=== PATIENT | female | born 1975 | race Two or more races ===

== ENCOUNTER 2016-08-09 19:52 | Emergency (ER) | payer MEDICAID ==
[~2016-08-09] VITALS: Ht 170.2 cm; Wt 97.5 kg
[2016-08-09 19:56] VITALS: BP 121/81
[2016-08-09 21:09] LABS: Basophils # (auto) 0 uL; Basophils % (auto) 0.4 % (0.0-2.0); Eosinophils # (auto) 0 uL; Eosinophils % (auto) 0.1 % (0.0-7.0); Hematocrit 48.9 % (36.0-46.0); Lymphocytes % (auto) 16.4 % (10.0-50.0); Mean Corpuscular Hemoglobin 29.5 pg (28.0-32.0); Mean Corpuscular Hgb Conc. 32.8 g/dL (32.0-36.0); Mean Corpuscular Volume 89.8 fL (80.0-100.0); Mean Platelet Volume 7.7 fL (7.4-10.4); Monocytes # (auto) 0.1 uL; Monocytes % (auto) 1.1 % (0.0-12.0); Platelet Count (auto) 333 10^3/uL (140-450); Red Cell Distribution Width 13.1 % (11.6-16.0); White Blood Cell 6.1 10^3/uL (4.4-10.8)
[2016-08-09 21:22] LABS: Albumin 4.3 g/dL (3.4-5.0); Anion Gap 11 (5-15); Aspartate Aminotransferase 21 U/L (15-37); Blood Urea Nitrogen 12 mg/dL (7-18); Calcium 9.3 mg/dL (8.5-10.1); Carbon Dioxide 25 mmol/L (21-32); Chloride 105 mmol/L (98-107); GFR African American 102 mL/min; GFR Non-African American 84 mL/min; Glucose 132 mg/dL (74-106); Potassium 3.5 mmol/L (3.5-5.1); Sodium 141 mmol/L (136-145)
[2016-08-09 21:27] LABS: Alkaline Phosphatase 100 U/L (45-117); Bilirubin, Total 0.4 mg/dL (0.2-1.0); Total Protein 8.4 g/dL (6.4-8.2)
== END 2016-08-09 21:20 | disposition left against medical advice (07) ==
LOC: ER 19:58
DX: F10.239 Alcohol dependence with withdrawal, unspecified (principal); Z53.21 Procedure and treatment not carried out due to patient leaving prior to being seen by health care provider
CPT/HCPCS: 36415; 80053; 80320; 85025

== ENCOUNTER 2017-10-28 18:43 | Emergency (ER) | payer MEDICAID ==
[~2017-10-28] VITALS: Ht 167.6 cm; Wt 90.7 kg
[2017-10-28] MEDS ORDERED: LORazepam 2MG/ML-1ML VIAL IV ONE ×2 (19:00→20:00)
[2017-10-28 19:05] VITALS: BP 176/94
[2017-10-28 19:33] LABS: Basophils # (auto) 0.1 uL; Basophils % (auto) 0.8 % (0.0-2.0); Eosinophils # (auto) 0 uL; Eosinophils % (auto) 0.1 % (0.0-7.0); Hematocrit 44.3 % (36.0-46.0); Hemoglobin 15.6 g/dL (12.2-16.2); Lymphocytes # (auto) 2.1 uL; Lymphocytes % (auto) 20.7 % (10.0-50.0); Mean Corpuscular Hemoglobin 31.7 pg (28.0-32.0); Mean Corpuscular Hgb Conc. 35.2 g/dL (32.0-36.0); Mean Corpuscular Volume 90.2 fL (80.0-100.0); Monocytes # (auto) 0.7 uL; Monocytes % (auto) 6.7 % (0.0-12.0); Neutrophils # (auto) 7.3 uL; Neutrophils % (auto) 71.7 % (37.0-80.0); Platelet Count (auto) 327 10^3/uL (140-450); Red Blood Cells 4.91 10^6/uL (4.0-5.20); White Blood Cell 10.2 10^3/uL (4.4-10.8)
[2017-10-28 19:54] LABS: Alanine Aminotransferase 27 U/L (13-56); Albumin 4.2 g/dL (3.4-5.0); Alkaline Phosphatase 56 U/L (45-117); Anion Gap 9 (5-15); Aspartate Aminotransferase 21 U/L (15-37); Bilirubin, Total 0.6 mg/dL (0.2-1.0); Blood Urea Nitrogen 19 mg/dL (7-18); Calcium 9.5 mg/dL (8.5-10.1); Carbon Dioxide 29 mmol/L (21-32); Chloride 102 mmol/L (98-107); GFR African American 83 mL/min; GFR Non-African American 69 mL/min; Glucose 113 mg/dL (74-106); Magnesium 2.2 mg/dL (1.6-2.6); Sodium 140 mmol/L (136-145); Total Protein 7.9 g/dL (6.4-8.2)
[2017-10-28 20:07] LABS: Potassium 2.9 mmol/L (3.5-5.1)
[2017-10-28] MEDS ORDERED: POTASSIUM CHL 10% (20 MEQ/15ML) 15ml ORAL SOLN PO ONE (20:30)
== END 2017-10-28 21:14 | disposition home or self-care (01) ==
LOC: EDBD 18:43 → ER 18:47
DX: F41.9 Anxiety disorder, unspecified (principal); E87.6 Hypokalemia; J44.9 Chronic obstructive pulmonary disease, unspecified; E78.5 Hyperlipidemia, unspecified; I10 Essential (primary) hypertension; F17.210 Nicotine dependence, cigarettes, uncomplicated; F12.10 Cannabis abuse, uncomplicated; Z90.49 Acquired absence of other specified parts of digestive tract; Z88.8 Allergy status to other drugs, medicaments and biological substances
CPT/HCPCS: 36415; 80053; 83735; 84484; 85025; 93005; 94761; 96374; 96375; 99285; J2060; J7030

== ENCOUNTER 2018-01-27 18:10 | Emergency (ER) | payer MEDICAID ==
[~2018-01-27] VITALS: Ht 167.6 cm; Wt 81.6 kg
[2018-01-27 18:19] VITALS: BP 135/96
[2018-01-27 18:51] LABS: Basophils # (auto) 0 uL; Eosinophils # (auto) 0 uL; Hemoglobin 15.7 g/dL (12.2-16.2); Lymphocytes # (auto) 0.6 uL; Monocytes # (auto) 0.2 uL; Neutrophils # (auto) 6.9 uL; Nucleated Red Blood Cells % 0.1 %
[2018-01-27 18:53] LABS: Basophils % (auto) 0.4 % (0.0-2.0); Hematocrit 45.2 % (36.0-46.0); Lymphocytes % (auto) 7.7 % (10.0-50.0); Mean Corpuscular Hgb Conc. 34.7 g/dL (32.0-36.0); Mean Corpuscular Volume 89.3 fL (80.0-100.0); Monocytes % (auto) 2.5 % (0.0-12.0); Neutrophils % (auto) 89.4 % (37.0-80.0); Platelet Count (auto) 476 10^3/uL (140-450); Red Blood Cells 5.06 10^6/uL (4.0-5.20); Red Cell Distribution Width 12.6 % (11.8-14.3); White Blood Cell 7.7 10^3/uL (4.4-10.8)
[2018-01-27 19:07] LABS: Albumin 4.4 g/dL (3.4-5.0); BUN/Creatinine Ratio 20.2; Calcium 9.8 mg/dL (8.5-10.1); Magnesium 1.8 mg/dL (1.6-2.6); Potassium 3.4 mmol/L (3.5-5.1)
[2018-01-27 19:09] LABS: Bilirubin, Total 0.4 mg/dL (0.2-1.0); Total Protein 8.9 g/dL (6.4-8.2)
[2018-01-28] MEDS ORDERED: METH10T PO (07:58)
== END 2018-01-27 20:30 | disposition left against medical advice (07) ==
LOC: EDBD 18:10 → ER 18:16
DX: R10.9 Unspecified abdominal pain (principal); R11.2 Nausea with vomiting, unspecified; Z53.21 Procedure and treatment not carried out due to patient leaving prior to being seen by health care provider
CPT/HCPCS: 36415; 80053; 82150; 83690; 83735; 85025

== ENCOUNTER 2018-01-28 02:33 | Emergency (ER) | payer MEDICAID ==
[~2018-01-28] VITALS: Ht 170.2 cm; Wt 81.6 kg
[2018-01-28 04:03] LABS: Basophils # (auto) 0 uL; Eosinophils # (auto) 0 uL; Neutrophils # (auto) 6.4 uL; Red Blood Cells 5.22 10^6/uL (4.0-5.20); White Blood Cell 7.9 10^3/uL (4.4-10.8)
[2018-01-28 04:04] LABS: Basophils % (auto) 0.5 % (0.0-2.0); Hematocrit 46.9 % (36.0-46.0); Hemoglobin 16.2 g/dL (12.2-16.2); Lymphocytes % (auto) 12.7 % (10.0-50.0); Mean Corpuscular Hgb Conc. 34.5 g/dL (32.0-36.0); Mean Corpuscular Volume 89.8 fL (80.0-100.0); Monocytes # (auto) 0.5 uL; Monocytes % (auto) 5.8 % (0.0-12.0); Platelet Count (auto) 454 10^3/uL (140-450); Red Cell Distribution Width 12.7 % (11.8-14.3)
[2018-01-28 04:15] LABS: INR 1.03 (0.9-1.15); Partial Thromboplastin Time 27.9 sec (23.78-33.04)
[2018-01-28 04:21] LABS: Albumin 4.5 g/dL (3.4-5.0); BUN/Creatinine Ratio 19.4; Calcium 9.8 mg/dL (8.5-10.1); Potassium 3.4 mmol/L (3.5-5.1)
[2018-01-28 04:24] LABS: Bilirubin, Total 0.4 mg/dL (0.2-1.0); Total Protein 8.8 g/dL (6.4-8.2)
[2018-01-28] MEDS ORDERED: LORazepam 2MG/ML-1ML VIAL ONE (06:13)
[2018-01-28] MEDS ORDERED: ONDANSETRON HCL 4 MG/2 ML VIAL ONE (06:13)
[2018-01-28] MEDS ORDERED: LORazepam 2MG/ML-1ML VIAL IV ONE (06:15)
[2018-01-28] MEDS ORDERED: ONDANSETRON HCL 4 MG/2 ML VIAL IV ONE (06:15)
[2018-01-28] MEDS ORDERED: SODIUM CHLORIDE 0.9% 1,000 ML IV ONE ×2 (06:59→07:00)
[2018-01-28] MEDS ORDERED: LABETALOL HCL 5 MG/ML ML 20ML VIAL IV ONE (07:00)
[2018-01-28] MEDS ORDERED: METHADONE HCL 10 MG TAB PO ONE (07:45)
[2018-01-28 07:55] VITALS: BP 159/105
[2018-01-28] MEDS ORDERED: METH10T PO (07:58)
[2018-01-28 07:59] LABS: Urine Bacteria NONE SEEN /hpf (None Seen); Urine Blood TRACE /uL (Negative); Urine Mucus FEW (None Seen); Urine Specific Gravity 1.019 (1.001-1.035); Urine WBC 2 /hpf (0 - 5)
[2018-01-28 08:09] LABS: Alcohol, Urine < 3.0 mg/dL (0-5); Amphetamine Screen, Urine NEGATIVE (NEGATIVE); Barbiturate Scree,Urine NEGATIVE (NEGATIVE); Benzodiazephine Screen, Urine POSITIVE (NEGATIVE); Cannabinoid Screen, Urine POSITIVE (NEGATIVE); Cocaine Screen, Urine NEGATIVE (NEGATIVE); Opiate Scree,Urine NEGATIVE (NEGATIVE); Phencyclidine Screen, Urine NEGATIVE (NEGATIVE)
== END 2018-01-28 09:35 | disposition home or self-care (01) ==
LOC: EDBD 02:33 → ER 02:40
DX: R10.9 Unspecified abdominal pain (principal); R11.2 Nausea with vomiting, unspecified; J44.9 Chronic obstructive pulmonary disease, unspecified; E78.5 Hyperlipidemia, unspecified; I10 Essential (primary) hypertension; F17.210 Nicotine dependence, cigarettes, uncomplicated; Z88.8 Allergy status to other drugs, medicaments and biological substances
CPT/HCPCS: 36415; 74176; 80053; 80307; 81001; 82150; 83690; 85025; 85610; 85730; 93005; 96361; 96374; 96375; 99285; J2060; J2405; J7030

== ENCOUNTER 2018-10-19 23:54 | Emergency (ER) | payer MEDICAID ==
[~2018-10-19] VITALS: Ht 177.8 cm; Wt 99.8 kg
[~2018-10-19 23:54] MED LIST: METH10T PO
[2018-10-20 01:12] LABS: Potassium 3.6 mmol/L (3.5-5.1)
[2018-10-20 01:15] LABS: Albumin 3.8 g/dL (3.4-5.0)
[2018-10-20] MEDS ORDERED: LORazepam 2MG/ML-1ML VIAL IV ONE (01:15)
[2018-10-20 01:17] LABS: Urine Bacteria FEW /hpf (None Seen); Urine Blood TRACE /uL (Negative); Urine Hyaline Cast FEW /lpf (0 - 2); Urine Mucus FEW (None Seen); Urine Specific Gravity 1.033 (1.001-1.035); Urine WBC 1 /hpf (0 - 5)
[2018-10-20 01:18] LABS: BUN/Creatinine Ratio 16.3
[2018-10-20 01:21] LABS: Bilirubin, Total 0.7 mg/dL (0.2-1.0)
[2018-10-20 04:15] VITALS: BP 148/81
== END 2018-10-20 04:35 | disposition left against medical advice (07) ==
LOC: EDUNIT# 23:54 → EDBD 23:54 → ER 10-20
DX: R10.84 Generalized abdominal pain (principal); R11.2 Nausea with vomiting, unspecified; F41.9 Anxiety disorder, unspecified; J44.9 Chronic obstructive pulmonary disease, unspecified; F32.9 Major depressive disorder, single episode, unspecified; E78.5 Hyperlipidemia, unspecified; I10 Essential (primary) hypertension; Z88.8 Allergy status to other drugs, medicaments and biological substances; Z90.49 Acquired absence of other specified parts of digestive tract
CPT/HCPCS: 36415; 74176; 80053; 81001; 83690; 96374; 99284; J2060

== ENCOUNTER 2019-05-10 10:55 | Inpatient (IN) | payer MEDICAID ==
[~2019-05-10] VITALS: Ht 170.2 cm; Wt 144.0 kg
[2019-05-10] MEDS ORDERED: SODIUM CHLORIDE 0.9% 1,000 ML IVB ONE (11:25)
[2019-05-10 12:12] LABS: Basophils # (auto) 0.1 uL; Eosinophils # (auto) 0 uL; Lymphocytes # (auto) 1.4 uL; Monocytes # (auto) 0.5 uL; Neutrophils # (auto) 6.1 uL; Nucleated Red Blood Cells % 0.4 %; White Blood Cell 8.1 10^3/uL (4.4-10.8)
[2019-05-10 12:13] LABS: Basophils % (auto) 0.8 % (0.0-2.0); Eosinophils % (auto) 0.5 % (0.0-7.0); Hematocrit 54.8 % (36.0-46.0); Hemoglobin 17.3 g/dL (12.2-16.2); Lymphocytes % (auto) 17.2 % (10.0-50.0); Mean Corpuscular Hemoglobin 25.3 pg (28.0-32.0); Mean Corpuscular Hgb Conc. 31.5 g/dL (32.0-36.0); Mean Corpuscular Volume 80.2 fL (80.0-100.0); Monocytes % (auto) 6.4 % (0.0-12.0); Neutrophils % (auto) 75.1 % (37.0-80.0); Platelet Count (auto) 266 10^3/uL (140-450); Red Blood Cells 6.83 10^6/uL (4.0-5.20); Red Cell Distribution Width 19.8 % (11.8-14.3)
[2019-05-10 12:31] LABS: Urine Bacteria NONE SEEN /hpf (None Seen); Urine Blood Negative /uL (Negative); Urine Mucus FEW (None Seen); Urine WBC 1 /hpf (0 - 5)
[2019-05-10 12:36] LABS: Albumin 2.9 g/dL (3.4-5.0); Calcium 8.3 mg/dL (8.5-10.1); Magnesium 1.6 mg/dL (1.6-2.6); Potassium 4.6 mmol/L (3.5-5.1)
[2019-05-10 12:42] LABS: BUN/Creatinine Ratio 24.7; Bilirubin, Total 0.7 mg/dL (0.2-1.0); Total Protein 6.7 g/dL (6.4-8.2)
[2019-05-10] MEDS ORDERED: LORazepam 2MG/ML-1ML VIAL IV ONE (12:45)
[2019-05-10 13:13] LABS: Alcohol, Urine < 3.0 mg/dL (0-5); Amphetamine Screen, Urine NEGATIVE (NEGATIVE); Barbiturate Scree,Urine NEGATIVE (NEGATIVE); Benzodiazephine Screen, Urine POSITIVE (NEGATIVE); Cannabinoid Screen, Urine NEGATIVE (NEGATIVE); Cocaine Screen, Urine NEGATIVE (NEGATIVE); Opiate Scree,Urine NEGATIVE (NEGATIVE); Phencyclidine Screen, Urine NEGATIVE (NEGATIVE)
[2019-05-10] MEDS ORDERED: FUROSEMIDE 40 MG/4 ML VIAL IV ONE (15:00)
[2019-05-10] MEDS ORDERED: ALPRAZolam 0.5 MG TAB PO ONE (16:15)
[2019-05-10] MEDS ORDERED: NITROGLYCERIN 0.4 MG SL TAB SL PRN (16:30)
[2019-05-10] MEDS ORDERED: MORPHINE SULF INJ 2 MG/ML SYRINGE 1ML IV PRN (16:30)
[2019-05-10] MEDS ORDERED: ONDANSETRON HCL 4 MG/2 ML VIAL IV PRN (16:30)
[2019-05-10] MEDS ORDERED: ALPRAZolam 0.5 MG TAB PO PRN (16:30)
--- NOTE | 2019-05-10 17:30 | NUR ---
PATIENT ADMITTED FROM ER: PATIENT ORIENTED TO TELE UNIT, ROOM 272 BED A, AND TO THIS RN. PATIENT A/OX 4 ON 10L OXYMIZER EVEN AND UNLABORED RESPIRATIONS NOTED. OBSERVED PATIENT AMBULATE TO TOILET WITH STEADY GAIT. BED IN LOWEST LOCKED POSITION, CALL LIGHT WITHIN REACH. WILL CONTINUE TO MONITOR.
[2019-05-10 17:37] VITALS: BP 109/73
[2019-05-10 18:14] VITALS: BP 141/76
[2019-05-10] MEDS: IPRATROPIUM BROM 0.5 MG/2.5ML INH SOL NEB SCH (18:17)
[2019-05-10] MEDS: ALBUTEROL SULF 2.5 MG/0.5ML(0.5%) NEB SOLN NEB SCH (18:17)
--- NOTE | 2019-05-10 18:40 | NUR ---
SPOKE WITH VLADIMIR BANEGAS REGARDING PATIENT REQUEST FOR SLEEP AID. NO NEW ORDERS, PLAN TO KEEP CURRENT MED'S AND RE-START LATUDA.
[2019-05-10 19:06] VITALS: BP 141/76
--- NOTE | 2019-05-10 19:19 | NUR ---
CARE ENDORSED TO CORINNE ANDERSEN.
--- NOTE | 2019-05-10 19:40 | NUR ---
Opening Shift Note Assumed care of patient, awake and alert. No S/S of distress. Instructed on POC and to call for assist PRN. Bed in lowest locked position, call light within reach, side rails x2. Will continue to monitor for changes Q1hr and PRN. Signed: 05/11/19 at 0030 by MARINA GARCIA SN <Co-Signature Required> Co-Signed: 05/11/19 at 0030 by CORINNE CASTILLO OCA, RN
[2019-05-10] MEDS ORDERED: IOHEXOL 350 MG/ML 100ML IJ ONE (20:49)
[2019-05-10] MEDS: NICOTINE 21MG/24 HR TOPICAL PATCH TD SCH (21:16)
[2019-05-10] MEDS: predniSONE 20 MG TAB PO SCH (21:17)
[2019-05-10 22:00] VITALS: BP 103/53
--- NOTE | 2019-05-10 22:50 | NUR ---
RT NOTE PT WAS SEEN BY RT FOR HHN TX. PT TOLERATES WELL VIA MASK. NO ADVERSE REACTION NOTED. PT LEFT ON 10L OXYMIZER POST TX. CONT ORDERED Addendum: 05/10/19 at 2316 by Velma Marshall RT Amended: Links added.
[2019-05-10] MEDS: BUDESONIDE (INHALATION) 0.5 MG/2 ML NEB NEB SCH (23:19)
--- NOTE | 2019-05-11 03:40 | NUR ---
Rounds Patient requesting methadone medication and states "will I be able to get my medication at 5 am? Because I go to the clinic at 5am everyday and that's when I get my medicine." Instructed patient that she has medication scheduled at 10 am, but I would ask hospitalist if it will be okay to give medicine early. Assessed patient's O2 saturation per MD Rice order to document any hypoxia throughout the night, patient satting at 86-87% on 10L. No SOB noted, but patient reports to be anxious. Instructed patient that it would be recommended to put on face mask for flow rate of 10L. Per patient she refuses to keep mask on as it "makes me feel claustrophobic", educated patient on the benefit of mask, but patient continues to refuse. Instructed patient that we would speak with RT.
--- NOTE | 2019-05-11 03:55 | NUR ---
Spoke with RT Spoke with RT about patient's current flow rate and O2 saturation at 86-87%. Informed RT of MD Rice progress note to keep O2 above 90%. Informed RT patient is refusing mask administration to help with oxygenation. Per RT, he would recommend patient to be on a high flow rate, but would have to be ALBARO status in order to be on high flow rate. Informed RT that I would speak with hospitalist and inform them of patient's status.
--- NOTE | 2019-05-11 04:00 | NUR ---
Hospitalist paged call circuit worker hospitalist called regarding patient status. Waiting for call back. Continue care.
--- NOTE | 2019-05-11 04:04 | NUR ---
Hospitalist returned call MD Grace returned call, updated MD of reason for call and updated on patient status. Informed MD of patient's O2 saturations and flow rate and not complaining of SOB. Informed MD of RT's recommendation to upgrade patient to ALBARO status in order to place patient on high flow rate. Per MD, okay to upgrade patient to ALBARO status if bed is available and to place on a high flow rate. Informed MD that patient is also requesting Methadone to be given early at 5 am, per okay to give methadone 80 mg PO early at 5 am instead of scheduled 10 am. Continue care.
--- NOTE | 2019-05-11 04:07 | NUR ---
Spoke with Charge nurse Informed charge nurse of patient status and conversation had with RT and Hospitalist. Informed radioactive waste disposal dispatcher that per hospitalist okay to upgrade patient to ALBARO if bed was available. Per charge nurse she will call enginehouse brakeman and will call me back.
--- NOTE | 2019-05-11 04:10 | NUR ---
Spoke with Charge Per charge nurse, roundhouse supervisor will call me to inform me of whether patient will go to [facility]O or ICU based off of bed availability.
--- NOTE | 2019-05-11 04:15 | NUR ---
Spoke with housekeeping supervisor hotel Spoke with housekeeping supervisor hotel about patient's ABG, per housekeeping supervisor hotel, he would not recommend high flow rate, he recommends patient to be on Bipap based off of high CO2 levels and patient's hx of COPD. Per housekeeping supervisor hotel he will speak with RT and hospitalist and call me back.
--- NOTE | 2019-05-11 04:22 | NUR ---
Spoke with house father Spoke with house father, per house father, after assessing patient himself, patient remains asymptomatic and currently satting at 91% on 10 L Oxymizer. petroleum products district supervisor stated, after having a conversation with RT and salesperson children's shoes hospitalist, it's okay to keep patient on tele floor and to continue to monitor patient's O2 saturation on 10 L Oxymizer. Will continue to monitor patient.
[2019-05-11 05:00] VITALS: BP 120/64
[2019-05-11 05:00] LABS: Basophils # (auto) 0.1 uL; Basophils % (auto) 0.7 % (0.0-2.0); Eosinophils # (auto) 0 uL; Eosinophils % (auto) 0.1 % (0.0-7.0); Hematocrit 52.5 % (36.0-46.0); Hemoglobin 16.2 g/dL (12.2-16.2); Mean Corpuscular Hemoglobin 24.9 pg (28.0-32.0); Mean Corpuscular Hgb Conc. 30.8 g/dL (32.0-36.0); Mean Corpuscular Volume 80.7 fL (80.0-100.0); Monocytes # (auto) 0.3 uL; Monocytes % (auto) 4.2 % (0.0-12.0); Neutrophils # (auto) 5.6 uL; Nucleated Red Blood Cells % 0.1 %; Platelet Count (auto) 241 10^3/uL (140-450); Red Cell Distribution Width 19.4 % (11.8-14.3)
[2019-05-11] MEDS: METHADONE HCL 10 MG TAB PO SCH (05:01)
[2019-05-11 05:21] LABS: BUN/Creatinine Ratio 20.9; Calcium 8.1 mg/dL (8.5-10.1); Potassium 4.4 mmol/L (3.5-5.1)
--- NOTE | 2019-05-11 06:45 | NUR ---
MD called Spoke with MD Rice in regards to patient's status throughout the night. New orders received and read back for verification. Will continue care.
[2019-05-11] MEDS: IPRATROPIUM BROM 0.5 MG/2.5ML INH SOL NEB SCH ×3 (07:22→18:48)
[2019-05-11] MEDS: ALBUTEROL SULF 2.5 MG/0.5ML(0.5%) NEB SOLN NEB SCH ×3 (07:22→18:48)
--- NOTE | 2019-05-11 08:05 | NUR ---
OPENING SHIFT NOTE: PATIENT CONTINUOUSLY USING CALL LIGHT REQUESTING XANAX. PATIENT VS WNL, BREATHING EVEN AND UNLABORED, OXYMIZER IN PLACE. INSTRUCTED PATIENT ON FALL PRECAUTIONS AND USE OF CALL LIGHT. BED IN LOWEST LOCKED POSITION. WILL MEDICATE ORDERED, AND CONTINUE TO MONITOR.
[2019-05-11] MEDS: ENOXAPARIN SOD 40 MG/0.4 ML SYRINGE SC SCH (08:14)
[2019-05-11] MEDS: predniSONE 20 MG TAB PO SCH ×2 (08:15→21:09)
[2019-05-11] MEDS: FAMOTIDINE 20 MG TAB PO SCH (08:15)
[2019-05-11] MEDS: NICOTINE 21MG/24 HR TOPICAL PATCH TD SCH (08:16)
--- NOTE | 2019-05-11 08:29 | NUR ---
PATIENT CARE: ASSISTED PATIENT WITH PARTIAL BATH, SOLES OF THE FEET APPEARED BLACK FROM DIRT. CLEANED BILATERAL FEET IN SHOWER, GAVE NEW SOCKS, AND LOTION FOR DRY SKIN. PATIENT ABLE TO DO MOST SELF-CARE, AND IS ACTIVE IN CARE. WILL CONTINUE TO MONITOR.
[2019-05-11 09:00] VITALS: BP 119/84
[2019-05-11] MEDS ORDERED: NICOTINE 21MG/24 HR TOPICAL PATCH TD SCH (10:00)
[2019-05-11] MEDS: BUDESONIDE (INHALATION) 0.5 MG/2 ML NEB NEB SCH ×2 (11:57→18:48)
[2019-05-11 12:45] VITALS: BP 122/74
--- NOTE | 2019-05-11 14:16 | NUR ---
CALL TO MD SAMPSON. ORDERS RECEIVED. CHANGE XANAX FROM Q12 TO Q8.
--- NOTE | 2019-05-11 14:27 | NUR ---
RESPIRATORY THERAPY AT BEDSIDE. CHANGED FROM OXYMIZER 10L TO NASAL CANNULA 5L O2 SAT 92-95%.
--- NOTE | 2019-05-11 14:30 | NUR ---
PATIENT SIGNED AMA TO SMOKE FORM. EDUCATED ON TIME LIMITS, AND PRECAUTIONS.
--- NOTE | 2019-05-11 14:39 | NUR ---
PATIENT AMA OUT OF ROOM TO SMOKE WITH NEIGHBOR B BED. PATIENT STATES , "I JUST NEED TO GET FRESH AIR FOR MY ANXIETY. I'LL BE FINE WITHOUT MY OXYGEN." THIS RN EDUCATED AGAINST PATIENT AMBULATING WITHOUT OXYGEN AT THIS TIME. PATIENT REFUSED TO WEAR NASAL CANNULA WHILE GOING OUTSIDE AT THIS TIME.
--- NOTE | 2019-05-11 15:08 | NUR ---
MD POE ROUNDING: PATIENT BACK IN ROOM. PLACED ON NASAL CANNULA. O2 SAT 82% PRIOR TO CANNULA BEING PUT BACK ON. 92% ON 5L NC. EDUCATED PATIENT ABOUT CURRENT DISEASE PROCESS AND IMPORTANCE OF WEARING O2 AT THIS TIME. MD OPE AT BEDSIDE, ALSO ENFORCING PATIENT TO TAKE PRECAUTION WITH REMOVING OXYGEN AT THIS TIME AND SMOKING CESSATION. MD POE, UPDATED PATIENT WITH PLAN OF CARE, RECOMMENDING SLEEP STUDIES OUTPATIENT FOR SLEEP APNEA. CONTINUE CURRENT PLAN OF CARE, AND CONTINUE TO MONITOR.
--- NOTE | 2019-05-11 16:57 | NUR ---
PATIENT AMA TO SMOKE DESPITE EDUCATION OF SERIOUS PRECAUTIONS. PATIENT STATES, "LET ME SMOKE MY LAST CIGARETTE."
[2019-05-11 17:00] VITALS: BP 126/69
--- NOTE | 2019-05-11 19:30 | NUR ---
CARE ENDORSED TO DENYS ANDERSEN.
--- NOTE | 2019-05-11 19:35 | NUR ---
Opening Shift Note Assumed care of patient, AOx4. No S/S of distress/SOB. Safety and fall precautions in place. Call light within reach. Instructed on POC and to call for assist PRN, will continue to monitor for changes Q1hr and PRN.
--- NOTE | 2019-05-11 19:55 | NUR ---
Respiratory note: TOOK PT OFF CPAP, PT STATES SHE CAN'T TOLERATE IT THAT THERE IS TOO MUCH PRESSURE AND IT FEELS LIKE SOMEONE IS HOLDING HER DOWN. WILL CONTINUE TO MONITOR.
--- NOTE | 2019-05-11 20:00 | NUR ---
IV Dressing IV dressing to right hand changed due to tape lifting. Patient tolerated well. Will continue to monitor. Addendum: 05/12/19 at 0117 by JAS CASPER RN RN Left* hand
[2019-05-11] MEDS: ACETAMINOPHEN 500 MG TAB PO PRN (21:09)
[2019-05-11] MEDS: ALPRAZolam 0.5 MG TAB PO PRN (21:10)
[2019-05-11 22:00] VITALS: BP 108/59
--- NOTE | 2019-05-12 01:33 | NUR ---
Family Received phone call from family requesting updates on patient status. After verifying password, family was updated on plan of care.
[2019-05-12] MEDS: METHADONE HCL 10 MG TAB PO SCH (04:46)
[2019-05-12 05:00] VITALS: BP 114/63
[2019-05-12 05:45] LABS: Basophils # (auto) 0 uL; Basophils % (auto) 0.4 % (0.0-2.0); Eosinophils # (auto) 0 uL; Eosinophils % (auto) 0.5 % (0.0-7.0); Hemoglobin 16.2 g/dL (12.2-16.2); Lymphocytes # (auto) 0.8 uL; Lymphocytes % (auto) 11.4 % (10.0-50.0); Mean Corpuscular Hemoglobin 25.1 pg (28.0-32.0); Mean Corpuscular Hgb Conc. 30.6 g/dL (32.0-36.0); Mean Corpuscular Volume 81.9 fL (80.0-100.0); Monocytes # (auto) 0.3 uL; Monocytes % (auto) 4.2 % (0.0-12.0); Neutrophils # (auto) 5.6 uL; Neutrophils % (auto) 83.5 % (37.0-80.0); Nucleated Red Blood Cells % 0.2 %; Platelet Count (auto) 237 10^3/uL (140-450); Red Blood Cells 6.47 10^6/uL (4.0-5.20); Red Cell Distribution Width 19.4 % (11.8-14.3); White Blood Cell 6.7 10^3/uL (4.4-10.8)
[2019-05-12 05:54] LABS: BUN/Creatinine Ratio 19.5; Calcium 8.5 mg/dL (8.5-10.1); Potassium 5.1 mmol/L (3.5-5.1)
[2019-05-12] MEDS: BUDESONIDE (INHALATION) 0.5 MG/2 ML NEB NEB SCH ×2 (06:45→19:29)
[2019-05-12] MEDS: IPRATROPIUM BROM 0.5 MG/2.5ML INH SOL NEB SCH ×3 (06:45→19:29)
[2019-05-12] MEDS: ALBUTEROL SULF 2.5 MG/0.5ML(0.5%) NEB SOLN NEB SCH ×3 (06:45→19:29)
--- NOTE | 2019-05-12 06:45 | NUR ---
Methadone Patient reports she normally takes methadone every morning at 0500. Scheduled methadone was changed from 1000 to 0500 per patient request. Will inform day-shift RN.
[2019-05-12] MEDS: ALPRAZolam 0.5 MG TAB PO PRN ×3 (06:52→22:45)
[2019-05-12] MEDS: ACETAMINOPHEN 500 MG TAB PO PRN ×2 (06:52→21:21)
--- NOTE | 2019-05-12 07:45 | NUR ---
Patient sitting in bed, awake, oriented x4, no acute distress noted. On O2 at 4 LPM. Patient has a signed AMA form to smoke. Explained to patient she will not have the Nicotine patch ordered at 10:00 am today if she will go off unit to smoke. Patient stated she will not smoke.
--- NOTE | 2019-05-12 08:00 | NUR ---
Patient asked if she can have oxygen at home. Explained to patient if the doctor will order arterial blood gas and if she qualifies for home oxygen, the request will be forwarded to her insurance.
[2019-05-12 09:00] VITALS: BP 128/67
[2019-05-12] MEDS: predniSONE 20 MG TAB PO SCH ×2 (09:30→21:21)
[2019-05-12] MEDS: ENOXAPARIN SOD 40 MG/0.4 ML SYRINGE SC SCH (09:31)
[2019-05-12] MEDS: FAMOTIDINE 20 MG TAB PO SCH (09:31)
[2019-05-12] MEDS: NICOTINE 21MG/24 HR TOPICAL PATCH TD SCH (09:34)
--- NOTE | 2019-05-12 10:08 | NUR ---
Patient's mother Jenifer (P# [phone]) came over.
--- NOTE | 2019-05-12 11:37 | NUR ---
Respiratory note: PATIENT STATED THAT SHE DOES NOT WANT TO WEAR CPAP AT NIGHT. SHE DID NOT TOLERATE WELL AND DOES NOT WANT TO USE IT. PT STATES IT GIVES HER ANXIETY.
--- NOTE | 2019-05-12 12:10 | NUR ---
Dr. Rice came over for follow up Pulmonology Consult. MD made aware patient asked if she can have home O2, did not go off unit to smoke, has Nicotine patch applied as ordered. O2 Saturation is 90% on O2 at [address] Rice said the wheezing has to be resolved first, patient is not okay for discharge yet as per Pulmonology perspective.
[2019-05-12 13:00] VITALS: BP 127/81
--- NOTE | 2019-05-12 13:50 | NUR ---
Patient asked for her Xanax. Explained to patient Xanax is not due at this time.
--- NOTE | 2019-05-12 14:08 | NUR ---
Dr. Arce at bedside. Patient asked if she can have home oxygen. MD ordered to check the O2 Saturation on room air tomorrow morning. Dr. Arce made aware Dr. Rice has seen the patient for Pulmonology follow up this morning, patient not okay for discharge today on Pulmonology perspective. Patient said she takes Latuda at home, requested for Trazodone at bedtime, she has other medications she does not remember the name. MD ordered to resume home medications, Trazodone PRN at bedtime only.
--- NOTE | 2019-05-12 14:08 | NUR ---
Patient called again asking for Xanax. Explained to patient Xanax is not due at this time.
--- NOTE | 2019-05-12 14:10 | NUR ---
Patient stated she takes Latuda at home once daily, she does not remember the dose and another psych medicine that she does not remember.
--- NOTE | 2019-05-12 14:37 | NUR ---
Patient walking in the room, anxiety noted. Patient stated she needs Xanax to relax. Xanax PO given for anxiety.
[2019-05-12 16:59] VITALS: BP 135/86
[2019-05-12] MEDS ORDERED: busPIRone HCL 10 MG TAB PO ONE (17:00)
--- NOTE | 2019-05-12 17:00 | NUR ---
Patient's mother brought POM Buspirone, Latuda and Propanolol. Dr. William ordered to resume home medications.
[2019-05-12] MEDS ORDERED: LATUDA 80 MG PO ONE (17:30)
--- NOTE | 2019-05-12 18:07 | NUR ---
Paged the RT for patient's breathing treatment.
[2019-05-12] MEDS ORDERED: TRAZ-181 PO (18:30)
[2019-05-12] MEDS ORDERED: PROP10TA57 PO (18:30)
[2019-05-12] MEDS ORDERED: BUSP30TA11 PO (18:30)
[2019-05-12] MEDS ORDERED: LURA80TA PO (18:30)
[2019-05-12] MEDS ORDERED: NICOTINE 14 MG/24HR TOPICAL PATCH TD ONE (19:30)
--- NOTE | 2019-05-12 19:30 | NUR ---
Jaylon Crain called back. Tree made aware patient's Nicotine patch fell off, patient sweats a lot when anxious. Tree ordered Nicotine patch one time 14 mg.
--- NOTE | 2019-05-12 19:30 | NUR ---
Opening Shift Note Assumed care of patient, awake and alert. No S/S of distress/SOB or pain. Insructed on POC and to callfor assist PRN, will continue to monitor for changes Q1hr and PRN. Fall and safety precautions in place. Call light within reach.
[2019-05-12] MEDS: traZODone HCL 50 MG TAB PO PRN (21:21)
[2019-05-12 22:00] VITALS: BP 126/85
[2019-05-13 05:00] VITALS: BP 123/63
[2019-05-13] MEDS: METHADONE HCL 10 MG TAB PO SCH (05:11)
[2019-05-13] MEDS: IPRATROPIUM BROM 0.5 MG/2.5ML INH SOL NEB SCH ×3 (05:52→18:17)
[2019-05-13] MEDS: ALBUTEROL SULF 2.5 MG/0.5ML(0.5%) NEB SOLN NEB SCH ×3 (05:52→18:17)
[2019-05-13] MEDS: BUDESONIDE (INHALATION) 0.5 MG/2 ML NEB NEB SCH ×2 (05:53→18:17)
--- NOTE | 2019-05-13 06:40 | NUR ---
PATIENT OWN MEDICATION Scheduled medication for 0700 not found in medication room. Patient was asked if medication is currently at bedside, patient stated "no." Bedside table and drawers were searched with patient's permission, no home medications found. Called pharmacy regarding medication, pharmacist stated will bullet it up. Awaiting medication.
[2019-05-13] MEDS: ALPRAZolam 0.5 MG TAB PO PRN ×3 (06:56→21:50)
[2019-05-13] MEDS: ACETAMINOPHEN 500 MG TAB PO PRN (06:56)
[2019-05-13] MEDS: busPIRone HCL 10 MG TAB PO SCH ×3 (06:57→21:42)
[2019-05-13] MEDS ORDERED: LATUDA 80 MG PO SCH (07:00)
--- NOTE | 2019-05-13 07:00 | NUR ---
PHARMACY Called and spoke with pharmacy regarding patient own medication scheduled at 0700. Pharmacist stated patient own medication was never signed in, but will locate medication and send up via bullet with RN signout form. After phone call ended, bullet system was checked for medication, not found. Endorsed to day shift RN Karena to administer medication. Karena verbalized agreement.
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
--- NOTE | 2019-05-13 08:00 | NUR ---
Dr. Rice, Pump Room Operator, at bedside.
[2019-05-13] MEDS: LURASIDONE HCL 80 MG PO SCH (08:14)
--- NOTE | 2019-05-13 08:15 | NUR ---
O2 saturation on R/A is 80-81%; Dr. Rice, Diabetes Territory Manager, aware. Patient ordered to ambulate with O2.
[2019-05-13 09:00] VITALS: BP 134/86
[2019-05-13] MEDS: ENOXAPARIN SOD 40 MG/0.4 ML SYRINGE SC SCH (10:06)
[2019-05-13] MEDS: predniSONE 20 MG TAB PO SCH ×2 (10:07→21:41)
[2019-05-13] MEDS: NICOTINE 21MG/24 HR TOPICAL PATCH TD SCH (10:07)
[2019-05-13] MEDS: FAMOTIDINE 20 MG TAB PO SCH (10:08)
[2019-05-13] MEDS: PROPRANOLOL HCL 20 MG TAB PO SCH ×2 (10:10→21:42)
--- NOTE | 2019-05-13 12:01 | NUR ---
NUTRITION ASSESSMENT NOTES Please refer to link notes of nutrition screen form filed under the intervention section of the plan of care for further details. Est. Needs based on AdBW (83 kg): 1650 kcal to 2050 kcal (20-25 kcal/kgAdBW), 66 gms to 83 gms pro (0.8-1.0 gms/kgAdBW). Will continue to monitor pertinent labs and reassess nutrient need prn Thank you. Addendum: 05/13/19 at [address] Amended: Links added.
[2019-05-13 13:00] VITALS: BP 142/94
[2019-05-13 17:00] VITALS: BP 153/98
--- NOTE | 2019-05-13 17:57 | NUR ---
Dr. Yazmin MD, at bedside.
--- NOTE | 2019-05-13 19:30 | NUR ---
ASSUMED CARE, PT. AWAKE, RELATIVE AT BEDSIDE, NO C/O PAIN, NO SOB.
[2019-05-13 22:00] VITALS: BP 108/66
[2019-05-13 22:59] VITALS: BP 153/98
[2019-05-14 05:00] VITALS: BP 108/70
[2019-05-14] MEDS: METHADONE HCL 10 MG TAB PO SCH (05:02)
[2019-05-14] MEDS: BUDESONIDE (INHALATION) 0.5 MG/2 ML NEB NEB SCH ×2 (05:36→19:00)
[2019-05-14] MEDS: IPRATROPIUM BROM 0.5 MG/2.5ML INH SOL NEB SCH ×3 (05:36→19:00)
[2019-05-14] MEDS: ALBUTEROL SULF 2.5 MG/0.5ML(0.5%) NEB SOLN NEB SCH ×3 (05:36→19:00)
[2019-05-14] MEDS: ALPRAZolam 0.5 MG TAB PO PRN ×3 (06:04→22:13)
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
[2019-05-14 09:00] VITALS: BP 135/88
[2019-05-14] MEDS: NICOTINE 21MG/24 HR TOPICAL PATCH TD SCH (10:00)
[2019-05-14] MEDS: FAMOTIDINE 20 MG TAB PO SCH (10:24)
[2019-05-14] MEDS: ENOXAPARIN SOD 40 MG/0.4 ML SYRINGE SC SCH (10:24)
[2019-05-14] MEDS: busPIRone HCL 10 MG TAB PO SCH ×2 (10:24→22:16)
[2019-05-14] MEDS: predniSONE 20 MG TAB PO SCH ×2 (10:24→22:12)
[2019-05-14] MEDS: PROPRANOLOL HCL 20 MG TAB PO SCH ×2 (10:25→22:00)
[2019-05-14] MEDS: LURASIDONE HCL 80 MG PO SCH (10:28)
--- NOTE | 2019-05-14 11:16 | NUR ---
Patient non-compliant to cardiac 2gm diet . RN aware .
[2019-05-14 13:00] VITALS: BP 142/96
--- NOTE | 2019-05-14 15:35 | NUR ---
Dr. Rice, Monitor And Storage Bin Tender, at bedside.
[2019-05-14 16:40] VITALS: BP 148/94
--- NOTE | 2019-05-14 19:15 | NUR ---
ASSUMED CARE, PT. AWAKE, HAVING HER BREATHING TX. NO C/O PAIN, NOT IN DISTRESS.
--- NOTE | 2019-05-14 19:20 | NUR ---
ASSUMED CARE, PT. AWAKE, NO C/O PAIN, RELATIVE AT BEDSIDE, NOT IN DISTRESS.
[2019-05-14] MEDS: traZODone HCL 50 MG TAB PO PRN (20:05)
[2019-05-14 22:00] VITALS: BP 112/62
[2019-05-15 05:00] VITALS: BP 115/71
[2019-05-15] MEDS: METHADONE HCL 10 MG TAB PO SCH (05:02)
[2019-05-15] MEDS: ALPRAZolam 0.5 MG TAB PO PRN ×2 (06:33→15:27)
[2019-05-15] MEDS: IPRATROPIUM BROM 0.5 MG/2.5ML INH SOL NEB SCH ×2 (06:35→13:09)
[2019-05-15] MEDS: ALBUTEROL SULF 2.5 MG/0.5ML(0.5%) NEB SOLN NEB SCH ×2 (06:35→13:09)
[2019-05-15] MEDS: BUDESONIDE (INHALATION) 0.5 MG/2 ML NEB NEB SCH (06:35)
--- NOTE | 2019-05-15 07:45 | NUR ---
Opening Shift Note Received report on the patient. Awake lying in bed. Patient shows no signs of distress at this time. Discussed plan of care with the patient and family. Bed is in the lowest position, side rails up x2, and call light is within reach.
[2019-05-15 08:00] VITALS: BP 120/78
[2019-05-15 08:03] VITALS: BP 135/88
[2019-05-15] MEDS: ACETAMINOPHEN 500 MG TAB PO PRN (08:11)
[2019-05-15] MEDS: LURASIDONE HCL 80 MG PO SCH (08:13)
--- NOTE | 2019-05-15 09:14 | NUR ---
RT noticed ABG was not done yesterday. Called RT and they will do ABG today.
--- NOTE | 2019-05-15 09:45 | NUR ---
PAGED DR. SAMPSON WITH ABG RESULTS, WAS TRANSFERRED TO HIS EXCHANGE. LEFT MESSAGE FOR HIM TO CALLTO CALL BACK FOR RESULTS ON ANSWERING MACHINE.
--- NOTE | 2019-05-15 09:55 | NUR ---
CALLED RN. AND LET HER KNOW THE RA ABG RESULTS. RN. STATES SHE WILL LET MD. KNOW WHEN SHE SEES HIM.
[2019-05-15] MEDS: NICOTINE 21MG/24 HR TOPICAL PATCH TD SCH (10:00)
[2019-05-15] MEDS: busPIRone HCL 10 MG TAB PO SCH (10:35)
[2019-05-15] MEDS: predniSONE 20 MG TAB PO SCH (10:35)
[2019-05-15] MEDS: PROPRANOLOL HCL 20 MG TAB PO SCH (10:36)
[2019-05-15] MEDS: FAMOTIDINE 20 MG TAB PO SCH (10:36)
[2019-05-15] MEDS: ENOXAPARIN SOD 40 MG/0.4 ML SYRINGE SC SCH (10:37)
--- NOTE | 2019-05-15 12:40 | NUR ---
Discharge planning per SS consult, patient has orders for 02 at 3L via nasal cannula and a nebulizer. Referral sent to [facility] for 02 equipment and auth request sent to [facility] for approval.
--- NOTE | 2019-05-15 12:44 | NUR ---
MD Dr. Jaquez at bedside. Patient being DC'd today. New orders received.
[2019-05-15 13:00] VITALS: BP 117/75
--- NOTE | 2019-05-15 15:41 | NUR ---
assessment Patient is a 43 year old female who is alert and oriented. Patients cognitive abilities are intact. Prior to admission patient lived home with family and functioned independently. Patient informed me she is able to care for her own ADLs. Per patient she will return home to her prior living arrangements post discharge and family will transport her home. Patient informed me her PCP is Dr Montano. Patient feels safe returning home on discharge. Patient has an ABG p02 of 44.5. Patient will need home 02 on discharge. Patient informed and agrees. I informed patient she has a right to speak to a social services manager regarding all care. I informed patient she has a right to participate in any and all discharge planning. Patient has a POA and advanced directive. Patient verbalized understanding and agreed to discharge plan. Addendum: 05/15/19 at 1544 by Megan MAYEN Amended: Links added.
--- NOTE | 2019-05-15 15:50 | NUR ---
Discharge planning per consult, patient has orders for home 02 and home health in reference to the new 02 order. 02 was sent to [facility], placed a follow up call, spoke with Mehreen and was advise that they will deliver the 02 to bedside between 5-7 pm and [facility] has accepted the home health. Auth's obtained from [facility]-[id number], [id number]. Nurse Kulwinder was advised of dc plan. Addendum: 05/15/19 at 1622 by MARCIA ESCALERA Amended: Links added.
[2019-05-15 17:27] VITALS: BP 113/66
== END 2019-05-15 16:45 | disposition home health service (06) | DRG 133 ==
LOC: EDUNIT# 10:55 → ER 10:55 → TELE 10:56 → EDBD 10:56 → TELE-WESTW 17:31
PROVIDERS: ADMIT Nurse Practitioner Acute Care; ATTEND Internal Medicine
PROC: 5A09357 Assistance with Respiratory Ventilation, Less than 24 Consecutive Hours, Continuous Positive Airway Pressure (ICD-10-PCS; principal; 2019-05-11)
DX: J96.21 Acute and chronic respiratory failure with hypoxia (principal); I50.41 Acute combined systolic (congestive) and diastolic (congestive) heart failure; I27.20 Pulmonary hypertension, unspecified; I31.3 Pericardial effusion (noninflammatory); E66.01 Morbid (severe) obesity due to excess calories; J44.1 Chronic obstructive pulmonary disease with (acute) exacerbation; I11.0 Hypertensive heart disease with heart failure; F17.210 Nicotine dependence, cigarettes, uncomplicated; J96.22 Acute and chronic respiratory failure with hypercapnia; J98.11 Atelectasis; M54.2 Cervicalgia; Z68.42 Body mass index [BMI] 45.0-49.9, adult; F11.23 Opioid dependence with withdrawal; F41.9 Anxiety disorder, unspecified; F31.32 Bipolar disorder, current episode depressed, moderate; F41.0 Panic disorder [episodic paroxysmal anxiety]; G89.4 Chronic pain syndrome; F41.8 Other specified anxiety disorders; Z91.19 Patient's noncompliance with other medical treatment and regimen; Z90.49 Acquired absence of other specified parts of digestive tract; Z88.8 Allergy status to other drugs, medicaments and biological substances; Z98.1 Arthrodesis status
CPT/HCPCS: 36415; 36600; 71045; 71275; 80048; 80053; 80307; 81001; 81025; 82805; 83735; 83880; 84443; 84484; 85025; 87804; 93005; 93306; 93970; 94640; 94660; 94761; 96374; 96375; G0378; J2405

== ENCOUNTER 2020-04-24 14:25 | Emergency (ER) | payer MEDICAID ==
[~2020-04-24] VITALS: Ht 167.6 cm; Wt 122.5 kg
[~2020-04-24 14:25] MED LIST changes: +BUSP30TA11 PO; +LURA80TA PO; +PROP10TA57 PO; +TRAZ-181 PO
[2020-04-24] MEDS ORDERED: ALPRAZolam 0.5 MG TAB PO ONE (14:45)
[2020-04-24] MEDS ORDERED: cloNIDine HCL 0.1 MG TAB PO ONE (16:00)
[2020-04-24 18:02] VITALS: BP 150/98
== END 2020-04-24 18:03 | disposition home or self-care (01) ==
LOC: EDBD 14:25 → ER 14:25
DX: F41.9 Anxiety disorder, unspecified (principal); I10 Essential (primary) hypertension; F17.210 Nicotine dependence, cigarettes, uncomplicated; F12.10 Cannabis abuse, uncomplicated; Z90.49 Acquired absence of other specified parts of digestive tract
CPT/HCPCS: 93005